=== PATIENT | male | born 1985 | race Caucasian/White ===

== ENCOUNTER 2018-05-02 09:26 | Observation (INO) | payer BC, OTHER ==
[~2018-05-02] VITALS: Ht 188 cm; Wt 145.3 kg
[2018-05-02] MEDS ORDERED: IV NORMAL SALINE 1,000ML 1,000 ML IV ONE (09:45)
--- NOTE | 2018-05-02 09:52 | PHYS DOC ---
Past History Past Medical History: Other Past Surgical History: Other Smoking: Greater than 1 pack/day Alcohol Use: Occasionally Drug Use: None Adult General Chief Complaint Chief Complaint: RAPID HEART RATE HPI HPI 32-year-old male presents with rapid heart beat and shortness of breath. Patient states that 1 hour prior to arrival he started to feel like his heart was beating fast and "skipping beats". He also had some shortness of breath and diaphoresis with this. He's never had this before. He decided to come the emergency room. He denies chest pain. 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 No history of cardiac problems. No known family history of cardiac issues a young age. Patient is not on any medications. He denies alcohol or drug use. He has not been feeling ill in any other way prior to the start of this episode one hour ago. Review of Systems Review of Systems Constitutional: Denies fever or chills [] Eyes: Denies change in visual acuity, redness, or eye pain [] HENT: Denies nasal congestion or sore throat [] Respiratory: shortness of breath [] Cardiovascular: No additional information not addressed in HPI [] GI: Denies abdominal pain, nausea, vomiting, bloody stools or diarrhea [] : Denies dysuria or hematuria [] Musculoskeletal: Denies back pain or joint pain [] Integument: Diaphoresis[] Neurologic: Denies headache, focal weakness or sensory changes [] Endocrine: Denies polyuria or polydipsia [] All other systems were reviewed and found to be within normal limits, except as documented in this note. Current Medications Current Medications Current Medications Medications (Trade) Dose Ordered Sig/Gamaliel Start Time Stop Time Status Last Admin Dose Admin Diltiazem HCl (Cardizem Iv Push) 20 mg 1X ONCE 05/02/18 10:00 05/02/18 10:01 Sodium Chloride 1,000 ml @ 1,000 mls/hr 1X ONCE 05/02/18 09:45 05/02/18 10:44 Allergies Allergies Allergies Coded Allergies Type Severity Reaction Last Updated Verified No Known Drug Allergies 08/09/13 No Physical Exam Physical Exam Constitutional: Well developed, well nourished, no acute distress, non-toxic appearance. [] HENT: Normocephalic, atraumatic, bilateral external ears normal, oropharynx moist, no oral exudates, nose normal. [] Eyes: PERRLA, EOMI, conjunctiva normal, no discharge. [] Neck: Normal range of motion, no tenderness, supple, no stridor. [] Cardiovascular:Heart rate 161, irregular rhythm, no murmur [] Lungs & Thorax: Bilateral breath sounds clear to auscultation [] Abdomen: Bowel sounds normal, soft, no tenderness, no masses, no pulsatile masses. [] Skin: Warm, erythematous, no erythema, no rash. [] Back: No tenderness, no CVA tenderness. [] Extremities: No tenderness, no cyanosis, no clubbing, ROM intact, no edema. [] Neurologic: Alert and oriented X 3, normal motor function, normal sensory function, no focal deficits noted. [] Psychologic: Affect normal, judgement normal, mood normal. [] EKG EKG Irregular rhythm, rate 161, normal axis, no obvious ST elevation or depression. Ernst consistent with A. fib.[] Radiology/Procedures Radiology/Procedures [] Impressions: EXAM: CHEST 1 VIEW History: Atrial fibrillation COMPARISON: None available. TECHNIQUE: Single portable radiograph of the chest FINDINGS: The cardiac silhouette is unremarkable. The lungs are clear bilaterally. The costophrenic sulci are clear and well demarcated. IMPRESSION: No radiographic evidence of an acute cardiopulmonary process. Electronically signed by: Pino Ahmadi MD (05/02/2018 10:03 AM) [id number] DICTATED AND SIGNED BY: PINO AHMADI MD DATE: 05/02/18 1003 CC: NAVNEET VILLA DO; PCP,NO Course & Med Decision Making Course & Med Decision Making Pertinent Labs and Imaging studies reviewed. (See chart for details) On arrival the patient appeared to be in atrial fibrillation. His labs are unremarkable. Troponin is negative. Chest x-rays negative. We did give 20 mg of Cardizem and his rate slowed to the 80s but still appears to be irregular. No definite P waves are found a repeat EKG. I will admit the patient to the hospital for further management of new onset atrial fibrillation. I discussed the patient with Dr. George and he has agreed to admit the patient. [] Dragon Disclaimer Dragon Disclaimer This electronic medical record was generated, in whole or in part, using a voice recognition dictation system. Departure Departure: Impression: Primary Impression: Atrial fibrillation Disposition: ADMITTED INPATIENT Admitting Physician: Rhiannon George Condition: STABLE Referrals: PCP,NO (PCP) Problem Qualifiers Primary Impression: Atrial fibrillation Atrial fibrillation type: unspecified Qualified Codes: I48.91 - Unspecified atrial fibrillation NAVNEET VILLA DO May 02, 2018 09:52
[2018-05-02] MEDS ORDERED: dilTIAZem 25 MG/5 ML VIAL IVP ONE (10:00)
--- NOTE | 2018-05-02 10:04 | EKG ---
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
[2018-05-02 10:06] LABS: WHITE BLOOD COUNT 6.5 x10^3/uL (4.0-11.0)
--- NOTE | 2018-05-02 10:06 | RAD ---
EXAM: CHEST 1 VIEW History: Atrial fibrillation COMPARISON: None available. TECHNIQUE: Single portable radiograph of the chest FINDINGS: The cardiac silhouette is unremarkable. The lungs are clear bilaterally. The costophrenic sulci are clear and well demarcated. IMPRESSION: No radiographic evidence of an acute cardiopulmonary process. Electronically signed by: Pino Ahmadi MD (05/02/2018 10:03 AM) [id number]
[2018-05-02 10:07] LABS: HEMATOCRIT 44.6 % (39.0-53.0); HEMOGLOBIN 14.5 g/dL (13.0-17.5); MEAN CORPUSCULAR HEMOGLOBIN 29 pg (25-35); MEAN CORPUSCULAR HGB CONC 32 g/dL (31-37); MEAN CORPUSCULAR VOLUME 88 fL (79-100); PLATELET COUNT 282 x10^3/uL (140-400); RED BLOOD COUNT 5.05 x10^6/uL (4.30-5.70); RED CELL DISTRIBUTION WIDTH 12.7 % (11.5-14.5)
--- NOTE | 2018-05-02 10:18 | EKG ---
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
[2018-05-02 10:25] LABS: ALBUMIN 3.3 g/dL (3.4-5.0); ALBUMIN/GLOBULIN RATIO 0.8 (1.0-1.7); CALCIUM 9.4 mg/dL (8.5-10.1); GFR 86.6; POTASSIUM 4.1 mmol/L (3.5-5.1); TOTAL BILIRUBIN 0.4 mg/dL (0.2-1.0); TOTAL PROTEIN 7.3 g/dL (6.4-8.2)
[2018-05-02 10:40] LABS: % ATYL 1 % (0-0); % BANDS 2 % (0-9); % EOS 4 % (0-5); % LYMPHS 39 % (24-48); % MONOS 11 % (0-10); % SEGS 43 % (35-66); PLT ESTIMATE ADEQUATE (ADEQUATE)
[2018-05-02] MEDS ORDERED: dilTIAZem VIAL 125 MG in IV DEXTROSE 5% 100 ML IV ONE (11:30)
[2018-05-02 12:31] VITALS: BP 114/75
[2018-05-02 13:35] VITALS: BP 129/79
[2018-05-02 13:54] LABS: THYROID STIM HORMONE (TSH) 1.761 uIU/mL (0.358-3.740)
--- NOTE | 2018-05-02 15:01 | CARD ---
MR#: [id number] Date of Study: 05/02/2018 Ordering Physician: GILLES BURNETT, Referring Physician: NIKITA LUNDBERG Tech: Eveline Perez RDCS APPROVED REPORT EXAM: Two-dimensional and M-mode echocardiogram with Doppler and color Doppler. Other Information Quality : Fair Rhythm : NSRTechnically limited study due to body habitus. INDICATION Atrial Fibrillation RISK FACTORS Obesity 2D DIMENSIONS RVDd2.9 (2.9-3.5cm)Left Atrium(2D)4.1 (1.6-4.0cm) IVSd1.0 (0.7-1.1cm)Aortic Root(2D)3.1 (2.0-3.7cm) LVDd5.0 (3.9-5.9cm)PWd1.0 (0.7-1.1cm) LVDs3.2 (2.5-4.0cm)FS (%) 36.8 % SV78.6 mlLVEF(%)66.3 (>50%) Aortic Valve AoV Peak Austyn.117.3cm/sAoV VTI21.7cm AO Peak GR.5.5mmHgAO Mean GR.3mmHg ADELINE (VTI)3.19cm2 Mitral Valve MV E Vomnvbdi41.6cm/sMV DECEL UHUQ310we MV A Dgavixqc53.5cm/sE/A Ratio2.2 Tricuspid Valve TR P. Uumrirgi752fn/sRAP [id number] TR Peak Gr.79kiZaVPOB21khAj LEFT VENTRICLE The left ventricle is normal size. There is normal left ventricular wall thickness. The left ventricu lar systolic function is normal and the ejection fraction is within normal range. The Ejection Fracti on is 55-60%. There is grossly normal LV segmental wall motion. Transmitral Doppler flow pattern is G rade II-pseudonormal filling dynamics. RIGHT VENTRICLE The right ventricle is mildly dilated. The right ventricular systolic function is normal. ATRIA The left atrium is mildly dilated. The right atrium size is normal. The interatrial septum is intact with no evidence for an atrial septal defect or patent foramen ovale as noted on 2-D or Doppler imagi ng. AORTIC VALVE The aortic valve is normal in structure and function. Doppler and Color Flow revealed no significant aortic regurgitation. There is no significant aortic valvular stenosis. MITRAL VALVE The mitral valve is normal in structure and function. There is no evidence of mitral valve prolapse. There is no mitral valve stenosis. Doppler and Color Flow revealed no mitral valve regurgitation note d. TRICUSPID VALVE The tricuspid valve is normal in structure and function. Doppler and Color Flow revealed physiologica l tricuspid regurgitation. The PA pressure was estimated at 31 mmHg. There is no tricuspid valve sten osis. PULMONIC VALVE The pulmonic valve is not well visualized. Doppler and Color Flow revealed trace pulmonic valvular re gurgitation. There is no pulmonic valvular stenosis. GREAT VESSELS The aortic root is normal in size. The ascending aorta is normal in size. The IVC is normal in size a nd collapses >50% with inspiration. PERICARDIAL EFFUSION There is no evidence of significant pericardial effusion. Critical Notification Critical Value: No <Conclusion> The left ventricular systolic function is normal and the ejection fraction is within normal range. Th e Ejection Fraction is 55-60%. There is grossly normal LV segmental wall motion. The right ventricle is mildly dilated. Technically difficult study Signed by : Sung Frank, Electronically Approved : 05/02/2018 15:01:08
[2018-05-02 15:08] VITALS: BP 146/77
[2018-05-02] MEDS ORDERED: ASPIRIN ENTERIC COATED 325 MG TABLET.DR. PO SCH (15:30)
--- NOTE | 2018-05-02 15:41 | HP ---
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 He described his heart beating fast and skipping beats. He also had some shortness of breath and diaphoresis. He never had this before. He decided to come to the Emergency Room. He denied any chest pain. He has no medical problem before. No known family history of cardiac issues at the younger age, not on any medication. Denied any alcohol or use drugs. He has not been feeling ill. Prior to this episode that started an hour before arrival to the Emergency Room, he was extensively investigated. In fact, on arrival to the Emergency Room, he was found be in atrial fibrillation with rapid ventricular response. His heart rate was 164 and irregularly irregular. He was given loading dose of Cardizem and started on a Cardizem drip and was admitted to the ICU to continue on a Cardizem drip. PAST MEDICAL HISTORY: Unremarkable. PAST SURGICAL HISTORY: Significant for right shoulder surgery. ALLERGIES: He has known drug allergies. MEDICATIONS: He is currently on no medication by prescription or [id number]. FAMILY HISTORY: He has a brother and sister, younger and healthy. Both parents are healthy. SOCIAL HISTORY: He is single, has no children. Does not smoke, drink alcohol or use recreational drugs. 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 REVIEW OF SYSTEMS: The patient denied any blurring of vision, cataract, glaucoma or macular degeneration. Denied any earache, tinnitus or sensorineural deafness. Denied any nosebleeds, stuffy nose or postnasal drip. Denied any sore throat, sore tongue, toothache, hoarseness of voice or difficulty swallowing. Denied any nausea, vomiting, diarrhea or constipation. Denied any hematemesis, melena or hematochezia. Denied any dysuria, frequency, hematuria. Denied any chest pain. Did complain of some shortness of breath. Denied any orthopnea or paroxysmal nocturia dyspnea. His family stated that he does snore at night time, although he has never slept while driving a car or went back to sleep after he wakes up in the morning. PHYSICAL EXAMINATION: GENERAL: On arrival to the Emergency Room, he looked well and was clearly in no apparent respiratory distress. No pallor, jaundice, cyanosis, or thyromegaly. No jugular venous distension. No limb edema. VITAL SIGNS: His heart rate was 164, blood pressure was 152/51, temperature was 98.7, respiratory rate was 20, and oxygen saturation was 100% on room air. HEAD, EYES, NOSE AND THROAT: Showed normocephalic, atraumatic. NECK: Supple. HEART: Showed normal first and second heart sounds. No gallop, rub or murmur. CHEST: Clear to auscultation. No crepitation or rhonchi. ABDOMEN: Distended, soft, nontender. No guarding or rigidity. No organomegaly. All hernial orifice are intact. Bowel sounds normal. NEUROLOGIC: He was awake, alert, responding appropriately. All cranial nerves are intact. EXTREMITIES: He moves extremities without difficulty, ambulates without assistance or assistive devices. LABORATORY DATA: His lab work showed a white cell count of 6500, hemoglobin 14.5, hematocrit 44.6, MCV 88 and platelet count 282,000 with a manual differential showed 42% polymorphs, 39% lymphocytes, 1% atypical lymphocytes and 11% monocytes, 4% eosinophils. His serum sodium was 143, potassium 4.1, chloride 108, bicarbonate 25, anion gap of 10, BUN 16, creatinine 1, estimated GFR was 87 mL per minute. His glucose was 100, calcium was 9.4, magnesium was 1.9. Total bilirubin, AST, ALT, alkaline phosphatase were normal. His troponin was less than 0.017. Total protein was 7.3, albumin 3.3. Serum triglycerides 144, total cholesterol was 149, LDL 89, VLDL was 28, HDL cholesterol was 32 with ratio was 4. TSH was 1.761. His EKG showed that he was in atrial fibrillation with a heart rate of [address] elevation or depression. ASSESSMENT AND PLAN: In summary, this is a 32-year-old male patient who is morbidly obese with a body mass index 41. Probably has obstructive sleep apnea, came with a new onset of atrial fibrillation with rapid ventricular response. He was given loading dose of Cardizem and started on Cardizem drip. By the time I saw him, he has already converted to sinus rhythm with a heart rate of 82 and blood pressure 129/79. We have consulted the Cardiology team and apparently an echocardiogram was done, the result of which is still pending. NIKITA LUNDBERG MD DR: ANGEL/kwabena JOB#: [id number] / [id number]
--- NOTE | 2018-05-02 16:42 | PDOC2 ---
CONSULT Date of Admission DATE: 05/02/18 TIME: 16:40 Reason for Consult: afib rvr Problem List Problems Medical Problems: (1) Atrial fibrillation Status: Acute History of Present Illness Mr Wills is a 32 year old male who presented with complaints of racing heart that started while sitting in class. He reports heart racing with associated dyspnea and lightheadedness. He went to [facility] where he was told he was likely in atrial fibrillation and so presented to ED for evaluation. He was found to be in atrial fibrillation with RVR and so started on Cardizem gtt. He was admitted to the ICU for evaluation and further treatment. He is currently back in sinus rhythm and denies chest pain, dyspnea, palpitations, lightheadedness or other symptoms. He denies any prior episodes or similar symptoms. He does reportedly snore and has some complaints of daytime fatigue. Past Medical History Medical and surgical history - unremarkable other than shoulder surgery. 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 Current Medications Current Medications Sodium Chloride 1,000 ml @ 1,000 mls/hr 1X ONCE IV Last administered on at 10:01; Start 05/02/18 at 09:45; Stop 05/02/18 at 10:44; Status DC Diltiazem HCl (Cardizem Iv Push) 20 mg 1X ONCE IVP Last administered on at 10:03; Start 05/02/18 at 10:00; Stop 05/02/18 at 10:01; Status DC Diltiazem HCl 125 mg/Dextrose 125 ml @ 5 mls/hr 1X ONCE IV Last administered on 05/02/18at 11:29; Start 05/02/18 at 11:30; Stop 05/03/18 at 12:29 Influenza Virus Vaccine (Afluria Trivalent [id number] Syringe) 0.5 ml ONCE ONCE VAX IM ; Start 05/03/18 at 09:00; Stop 05/03/18 at 09:01 Diltiazem HCl (Cardizem 24hr Cd) 120 mg DAILY PO Last administered on at 15:47; Start 05/02/18 at 15:30 Aspirin (Aspirin Enteric Coated) 162 mg DAILYWBKFT PO Last administered on 05/02at 15:32; Start 05/02/18 at 15:30 Active Scripts Active Reported No Known Medications Prior To Admisstion (Info) Each 1 Each Allergies: Coded Allergies: No Known Drug Allergies (Unverified , 05/02/18) verified Review of System as per HPI or negative General: Alert, Oriented X3, Cooperative, No acute distress HEENT: Atraumatic, EOMI Lungs: Clear to auscultation, Normal air movement Heart: Regular rate, Normal S1, Normal S2, No murmurs, Other (no gallops, clicks or rubs) Abdomen: Normal bowel sounds, Soft, No tenderness Extremities: No clubbing, No cyanosis, No edema, Normal pulses Neuro: Normal speech, Strength at 5/5 X4 ext, Cranial nerves 3-12 NL Psych/Mental Status: Mental status NL, Mood NL VITALS Vital Signs Date Time Temp Pulse Resp B/P (MAP) Pulse Ox O2 Delivery O2 Flow Rate FiO2 05/02/18 15:47 83 146/77 05/02/18 15:08 20 Room Air 05/02/18 12:31 98.5 98 Labs Laboratory Tests Test 05/02/18 09:50 White Blood Count 6.5 x10^3/uL (4.0-11.0) Red Blood Count 5.05 x10^6/uL (4.30-5.70) Hemoglobin 14.5 g/dL (13.0-17.5) Hematocrit 44.6 % (39.0-53.0) Mean Corpuscular Volume 88 fL (79-100) Mean Corpuscular Hemoglobin 29 pg (25-35) Mean Corpuscular Hemoglobin Concent 32 g/dL (31-37) Red Cell Distribution Width 12.7 % (11.5-14.5) Platelet Count 282 x10^3/uL (140-400) Segmented Neutrophils % 43 % (35-66) Band Neutrophils % 2 % (0-9) Lymphocytes % 39 % (24-48) Atypical Lymphocytes % (Manual) 1 % (0-0) Monocytes % 11 % (0-10) Eosinophils % 4 % (0-5) Platelet Estimate Adequate (ADEQUATE) Sodium Level 143 mmol/L (136-145) Potassium Level 4.1 mmol/L (3.5-5.1) Chloride Level 108 mmol/L (98-107) Carbon Dioxide Level 25 mmol/L (21-32) Anion Gap 10 (6-14) Blood Urea Nitrogen 16 mg/dL (8-26) Creatinine 1.0 mg/dL (0.7-1.3) Estimated GFR (Cockcroft-Gault) 86.6 BUN/Creatinine Ratio 16 (6-20) Glucose Level 100 mg/dL (70-99) Calcium Level 9.4 mg/dL (8.5-10.1) Magnesium Level 1.9 mg/dL (1.8-2.4) Total Bilirubin 0.4 mg/dL (0.2-1.0) Aspartate Amino Transf (AST/SGOT) 20 U/L (15-37) Alanine Aminotransferase (ALT/SGPT) 38 U/L (16-63) Alkaline Phosphatase 71 U/L (46-116) Troponin I Quantitative < 0.017 ng/mL (0-0.055) Total Protein 7.3 g/dL (6.4-8.2) Albumin 3.3 g/dL (3.4-5.0) Albumin/Globulin Ratio 0.8 (1.0-1.7) Triglycerides Level 144 mg/dL (0-150) Cholesterol Level 149 mg/dL (0-200) LDL Cholesterol, Calculated 89 mg/dL (0-100) VLDL Cholesterol, Calculated 28 mg/dL (0-40) Non-HDL Cholesterol Calculated 117 mg/dL (0-129) HDL Cholesterol 32 mg/dL (40-60) Cholesterol/HDL Ratio 4.0 Thyroid Stimulating Hormone (TSH) 1.761 uIU/mL (0.358-3.740) Images CXR - IMPRESSION: No radiographic evidence of an acute cardiopulmonary process. Assessment/Plan 1. Atrial fibrillation with RVR, paroxysmal - now sinus rhythm. discontinue IV cardizem, start on oral and home with MCT for af burden. 2. prob KYLIE - refer to Dr Steiner for sleep study/cpap mgmt 3. obesity - encourage weight reduction Ok for discharge home as above with outpatient follow up in the next couple weeks with Dr Frank. GILLES BURNETT APRN May 02, 2018 16:42
[2018-05-02 16:57] VITALS: BP 149/80
[2018-05-02] MEDS ORDERED: DILT120C85 PO (17:23)
[2018-05-02] MEDS ORDERED: ASPI-630 PO (17:23)
== END 2018-05-02 17:49 | disposition home or self-care (01) ==
LOC: ER 09:26 → ICU 11:37 → INTOOBSV 11:37
PROVIDERS: ADMIT Internal Medicine; ATTEND Internal Medicine
DX: I48.91 Unspecified atrial fibrillation (principal); R61 Generalized hyperhidrosis; E66.01 Morbid (severe) obesity due to excess calories; Z68.41 Body mass index [BMI] 40.0-44.9, adult; R07.89 Other chest pain
CPT/HCPCS: 36415; 71045; 80053; 80061; 83735; 84443; 84484; 85007; 85025; 93005; 93306; 96365; 96366; 96376; 99284; G0378; J3490; G0379; J7030

== ENCOUNTER → 2021-02-06 | Outpatient (CLI) | payer BC ==
[~2021-02-06] MED LIST: ASPI-630 PO; DILT120C99 PO
--- NOTE | 2021-02-06 11:23 | RAD ---
XR CHEST 2V History: Shortness of breath. Productive cough for 3 days. History of smoking. Comparison: 05/02/2018. Technique: PA and lateral chest radiographs. Findings: The lungs are adequately and symmectrically inflated. No airspace consolidation, pleural effusion or pneumothorax. The cardiomediastinal silhoutte and pulmonary vasculature are within normal limits. Sof t tissues and osseous structures are unremarkable. Impression: 1. No acute cardiopulmonary process. Electronically signed by: Julio Cesar Berman MD (02/06/2021 11:20 AM) [facility]
== END ==
LOC: PMG 11:00
PROVIDERS: ATTEND Nurse Practitioner Family
DX: R06.02 Shortness of breath (principal)
CPT/HCPCS: 71046